=== PATIENT | male | born 1990 | race Caucasian/White ===

== ENCOUNTER 2016-06-05 16:02 | Emergency (ER) | payer OTHER ==
[2016-06-05 16:11] VITALS: RESP 18
[2016-06-05] MEDS ORDERED: SODIUM CHLORIDE 0.9% 1,000 ML IV STA (16:18)
[2016-06-05] MEDS ORDERED: KETOROLAC 30 MG/ML 1 ML VIAL IVP STA (16:18)
[2016-06-05 16:44] LABS: Basophils % (A) 0 %; CH 31.2; Eosinophils # (A) 0.1 k/uL (0-0.7); Eosinophils % (A) 1 %; HCT 45.1 % (39.0-53.0); HDW 2.72; HGB 15.6 gm/dL (13.0-17.5); Luc # (Auto) 0.14; Luc % (Auto) 2; Lymphocytes # (A) 1.2 k/uL (1.0-4.8); Lymphocytes % (A) 14 %; MCHC 34.6 g/dL (31.0-37.0); MCV 89.5 fL (80.0-100.0); Mean Platelet Volume 7.1; Monocytes # (A) 0.3 k/uL (0-1.0); Monocytes % (A) 4 %; Neutrophils # (A) 6.9 k/uL (1.3-7.7); Neutrophils % (A) 80 %; RBC 5.05 m/uL (4.30-5.90); RDW 12.8 % (11.5-15.5); WBC 8.7 k/uL (3.8-10.6); WBC (Perox) 8.74
[2016-06-05 16:51] LABS: ALT 53 U/L (21-72); AST 46 U/L (17-59); Alkaline Phosphatase 85 U/L (38-126); Amylase 61 U/L (30-110); Anion Gap 13 mmol/L; Blood Urea Nitrogen 7 mg/dL (9-20); Calcium 9.8 mg/dL (8.4-10.2); Carbon Dioxide 24 mmol/L (22-30); Chloride 104 mmol/L (98-107); Glucose 104 mg/dL (74-99); Non-African American GFR(MDRD) >60 (>60 ml/min/1.73 sqM); Potassium 3.7 mmol/L (3.5-5.1); Sodium 141 mmol/L (137-145); Total Bilirubin 0.8 mg/dL (0.2-1.3)
--- NOTE | 2016-06-05 16:54 | XR ---
EXAMINATION TYPE: XR KUB DATE OF EXAM: 06/05/2016 4:40 PM CLINICAL HISTORY: Left-sided abdominal pain with vomiting. History of right-sided kidney stones. TECHNIQUE: 2 upright KUB images of the abdomen are obtained. COMPARISON: CT abdomen pelvis September 18, 2014. Acute abdominal series July 13, 2015. FINDINGS: Scattered gas is seen in non-distended stomach and small bowel loops. Gas and fecal mater ial is seen in non-distended colon. Spleen size is stable and upper limits of normal. Tiny renal calc keron seen on CT are too small to visualize on plain films. Lung bases are clear. Heart size is upper l imits of normal. Visualized osseous structures are intact. No pneumoperitoneum is noted. IMPRESSION: Overall nonobstructive bowel gas pattern.
[2016-06-05 17:10] LABS: Appearance,Urine Clear (Clear); Bilirubin,Urine Negative (Negative); Glucose,Urine (UA) Negative (Negative); Ketones,Urine Negative (Negative); Leukocyte Esterase,Urine Negative (Negative); Mucus,Urine Occasional /hpf; Nitrite,Urine Negative (Negative); PH, Urine 5.5 (5.0-8.0); Particle Count 1491; Protein,Urine Trace (Negative); RBC,Urine 9 /hpf (0-5); Specific Gravity,Urine 1.012 (1.001-1.035); UA Billing (MACRO vs. MICRO) MICRO; Urobilinogen,Urine <2.0 mg/dL (<2.0); WBC,Urine 2 /hpf (0-5)
--- NOTE | 2016-06-05 17:32 | ED ---
Abdominal Pain HPI - General Chief Complaint: Abdominal Pain Stated Complaint: Side Pain Time Seen by Provider: 06/05/16 16:12 Source: patient, RN notes reviewed Mode of arrival: ambulatory Limitations: no limitations - History of Present Illness Initial Comments: 25-year-old male presents emergency Department with chief complaint of left flank pain. Patient states this started earlier this morning dissipated and return. Patient has a history kidney stones. Patient had some nausea that has dissipated. Denies any vomiting, diarrhea constipation. He states he has had some urinary changes. Patient offers no other complaints. - Related Data Home Medications Medication Instructions Recorded Confirmed Ibuprofen [Motrin] 600 mg PO TID PRN 06/05/16 06/05/16 Multivitamin [Multivitamins Adult 1 tab PO DAILY 06/05/16 06/05/16 Gummies] Ranitidine HCl [Zantac] 300 mg PO DAILY PRN 06/05/16 06/05/16 busPIRone HCL 10 mg PO TID PRN 06/05/16 06/05/16 Previous Rx's Medication Instructions Recorded Hydrocodone/Acetaminophen [[place] 1 tab PO Q6HR PRN #15 tab 06/05/16 5-325] Ketorolac [Toradol] 10 mg PO Q8HR #15 tab 06/05/16 Ondansetron Odt [Zofran Odt] 4 mg PO Q8HR PRN #10 tab 06/05/16 Allergies Allergy/AdvReac Type Severity Reaction Status Date / Time quetiapine fumarate Allergy Swelling Verified 06/05/16 16:35 [From Seroquel] sertraline HCl [From Zoloft] Allergy Swelling Verified 06/05/16 16:35 Review of Systems ROS Statement: Those systems with pertinent positive or pertinent negative responses have been documented in the HPI. ROS Other: All systems not noted in ROS Statement are negative. Past Medical History Additional Past Medical History / Comment(s): back pain, migraines History of Any Multi-Drug Resistant Organisms: None Reported Past Surgical History: Adenoidectomy, Hernia Repair Additional Past Surgical History / Comment(s): kidney stone retrieval Past Psychological History: Anxiety, Depression Smoking Status: Never smoker Past Alcohol Use History: Rare Past Drug Use History: Marijuana General Exam Limitations: no limitations General appearance: alert, in no apparent distress Head exam: Present: atraumatic, normocephalic, normal inspection Respiratory exam: Present: normal lung sounds bilaterally. Absent: respiratory distress, wheezes, rales, rhonchi, stridor Cardiovascular Exam: Present: regular rate, normal rhythm, normal heart sounds. Absent: systolic murmur, diastolic murmur, rubs, gallop, clicks GI/Abdominal exam: Present: soft, normal bowel sounds. Absent: distended, tenderness, guarding, rebound, rigid Back exam: Present: CVA tenderness (L). Absent: CVA tenderness (R) Neurological exam: Present: alert, oriented X3, CN II-XII intact Skin exam: Present: warm, dry, intact, normal color. Absent: rash Course Vital Signs 06/05/16 16:08 Temperature 98.4 F Pulse Rate 86 Respiratory 18 Rate Blood Pressure 128/76 O2 Sat by Pulse 97 Oximetry Medical Decision Making - Medical Decision Making 25-year-old male presented for left flank pain. Patient does have hematuria consistent with his kidney stones in the past. Patient will be discharged with pain medication. Patient's pain is improved at this time. Return parameters were discussed. - Lab Data Result diagrams: 06/05/16 16:25 06/05/16 16:25 Lab Results 06/05/16 06/05/16 06/05/16 Range/Units 16:25 16:25 16:54 WBC 8.7 (3.8-10.6) k/uL RBC 5.05 (4.30-5.90) m/uL Hgb 15.6 (13.0-17.5) gm/dL Hct 45.1 (39.0-53.0) % MCV 89.5 (80.0-100.0) fL MCH 31.0 (25.0-35.0) pg MCHC 34.6 (31.0-37.0) g/dL RDW 12.8 (11.5-15.5) % Plt Count 182 (150-450) k/uL Neutrophils % 80 % Lymphocytes % 14 % Monocytes % 4 % Eosinophils % 1 % Basophils % 0 % Neutrophils # 6.9 (1.3-7.7) k/uL Lymphocytes # 1.2 (1.0-4.8) k/uL Monocytes # 0.3 (0-1.0) k/uL Eosinophils # 0.1 (0-0.7) k/uL Basophils # 0.0 (0-0.2) k/uL Sodium 141 (137-145) mmol/L Potassium 3.7 (3.5-5.1) mmol/L Chloride 104 (98-107) mmol/L Carbon Dioxide 24 (22-30) mmol/L Anion Gap 13 mmol/L BUN 7 L (9-20) mg/dL Creatinine 0.69 (0.66-1.25) mg/dL Est GFR (MDRD) Af Amer >60 (>60 ml/min/1.73 sqM) Est GFR (MDRD) Non-Af >60 (>60 ml/min/1.73 sqM) Glucose 104 H (74-99) mg/dL Calcium 9.8 (8.4-10.2) mg/dL Total Bilirubin 0.8 (0.2-1.3) mg/dL AST 46 (17-59) U/L ALT 53 (21-72) U/L Alkaline Phosphatase 85 (38-126) U/L Total Protein 9.0 H (6.3-8.2) g/dL Albumin 5.1 H (3.5-5.0) g/dL Amylase 61 (30-110) U/L Lipase 67 (23-300) U/L Urine Color Yellow Urine Appearance Clear (Clear) Urine pH 5.5 (5.0-8.0) Ur Specific [place] 1.012 (1.001-1.035) Urine Protein Trace H (Negative) Urine Glucose (UA) Negative (Negative) Urine Ketones Negative (Negative) Urine Blood Small H (Negative) Urine Nitrite Negative (Negative) Urine Bilirubin Negative (Negative) Urine Urobilinogen <2.0 (<2.0) mg/dL Ur Leukocyte Esterase Negative (Negative) Urine RBC 9 H (0-5) /hpf Urine WBC 2 (0-5) /hpf Urine Mucus Occasional H (None) /hpf Disposition Clinical Impression: Kidney stone on left side Disposition: HOME SELF-CARE Condition: Stable Instructions: Kidney Stones (ED) Additional Instructions: Please return to the Emergency Department if symptoms worsen or any other concerns. Prescriptions: Hydrocodone/Acetaminophen [[place] 5-325] 1 tab PO Q6HR PRN #15 tab PRN Reason: Pain Ketorolac [Toradol] 10 mg PO Q8HR #15 tab Ondansetron Odt [Zofran Odt] 4 mg PO Q8HR PRN #10 tab PRN Reason: Nausea Time of Disposition: 17:31
[2016-06-05 17:42] VITALS: BP 127/71; PULSE 66; TEMP 98.7
== END 2016-06-05 17:42 | disposition home or self-care (01) ==
LOC: EC 16:02
DX: N20.0 Calculus of kidney (principal); Z79.899 Other long term (current) drug therapy; Z88.8 Allergy status to other drugs, medicaments and biological substances
CPT/HCPCS: 99284; 96374; 96361; 36415; 80053; 82150; 83690; 85025; 81001; 74000; J1885

== ENCOUNTER → 2016-10-24 | Outpatient (CLI) | payer OTHER ==
--- NOTE | 2016-10-24 14:27 | XR ---
EXAMINATION TYPE: XR spine complete AP and Lat DATE OF EXAM: 10/24/2016 COMPARISON: NONE HISTORY: 26-year-old male with back pain and pain between the shoulders TECHNIQUE: 9 views FINDINGS: Cervical spine: No predental space widening or prevertebral soft tissue swelling. There is normal ali gnment of the cervical spine. No significant degenerative change is seen. Thoracic spine: 12 rib-bearing thoracic vertebral bodies. All pedicles are visualized. There is accen tuated mid thoracic kyphosis and mild endplate spondylosis. Vertebral body heights are preserved and alignment is maintained. Lumbar spine: 5 lumbar type vertebral bodies. Mild facet arthropathy lower lumbar spine and suggestio n of very minimal disc space narrowing in the lumbar spine. Vertebral body heights are preserved and alignment is maintained. IMPRESSION: 1. Cervical spine: No prevertebral soft tissue swelling or malalignment. No significant degenerative change seen. 2. Thoracic spine: Accentuated midthoracic kyphosis with mild endplate spondylosis. No vertebral comp ression collapse or malalignment. 3. Lumbar spine: Minimal degenerative changes may be present. No vertebral compression collapse or ma lalignment.
== END | disposition home or self-care (01) ==
LOC: RADXRMAIN 12:01
PROVIDERS: ATTEND Internal Medicine
DX: M47.814 Spondylosis without myelopathy or radiculopathy, thoracic region (principal); M40.294 Other kyphosis, thoracic region
CPT/HCPCS: 72082

== ENCOUNTER 2016-11-09 21:40 | Emergency (ER) | payer OTHER ==
[2016-11-09 21:50] VITALS: RESP 18
--- NOTE | 2016-11-09 22:12 | ED ---
Male Urogenital HPI - General Chief complaint: Urogenital Stated complaint: hematuria Time Seen by Provider: 11/09/16 21:50 Source: patient Mode of arrival: ambulatory Limitations: no limitations - History of Present Illness Initial comments: Patient is a 26-year-old male who presents with a chief complaint of hematuria. The patient states that he was at home, and had one episode. He states that at the beginning of his stream he felt as if there was pressure on the shaft of his penis. After history and started he felt a little better however at the end of his stream he noticed a little bit of blood. Patient states that this is not happened to him before however he is concerned that he may be passing another kidney stone as he has a history of previous stones. Patient describes mild right flank pain however he states this is not nearly as intense as the last time he had a kidney stone. Patient states that he is sexually active with one partner. Patient states that he is unsure whether or not he has been exposed to socially transmitted infections. Patient admits to mild burning the last time he urinated. Patient denies any history of trauma to the groin or back. He cannot identify a possible inciting incidents. There are no aggravating or alleviating factors. MD Complaint: dysuria Location: penis, right flank Radiation: none Quality: burning Consistency: intermittent Improves with: none Worsens with: urination new sexual partner (Patient has been with his current partner for 3 months) Reports: blood in urine - Related Data Home Medications Medication Instructions Recorded Confirmed ARIPiprazole [Abilify] 5 mg PO DAILY 11/09/16 11/09/16 Baclofen (Unknown Dose) 1 tab PO DIRECTED 11/09/16 11/09/16 Melatonin 3 mg PO HS 11/09/16 11/09/16 OXcarbazepine [Trileptal] 300 mg PO BID 11/09/16 11/09/16 PARoxetine [Paxil] 20 mg PO DAILY 11/09/16 11/09/16 Allergies Allergy/AdvReac Type Severity Reaction Status Date / Time quetiapine fumarate Allergy Swelling Verified 11/09/16 22:29 [From Seroquel] sertraline HCl [From Zoloft] Allergy Swelling Verified 11/09/16 22:29 Review of Systems ROS Statement: Those systems with pertinent positive or pertinent negative responses have been documented in the HPI. ROS Other: All systems not noted in ROS Statement are negative. Constitutional: Denies: fever, chills Eyes: Denies: vision change ENT: Denies: ear pain, throat pain Respiratory: Denies: dyspnea Cardiovascular: Denies: chest pain Endocrine: Denies: fatigue Gastrointestinal: Denies: abdominal pain, nausea, vomiting Genitourinary: Reports: dysuria, hematuria. Denies: discharge, testicular pain , testicular mass Musculoskeletal: Denies: back pain Skin: Denies: rash, lesions Neurological: Denies: headache, weakness Psychiatric: Reports: as per HPI Past Medical History Past Medical History: No Reported History Additional Past Medical History / Comment(s): back pain, migraines, kidney stones History of Any Multi-Drug Resistant Organisms: None Reported Past Surgical History: Adenoidectomy, Hernia Repair Additional Past Surgical History / Comment(s): kidney stone retrieval Past Psychological History: Anxiety, Depression Smoking Status: Never smoker Past Alcohol Use History: Occasional Past Drug Use History: Marijuana General Exam Limitations: no limitations General appearance: alert, appears intoxicated Head exam: Present: atraumatic, normocephalic Eye exam: Present: normal appearance ENT exam: Present: normal exam, mucous membranes moist Respiratory exam: Present: normal lung sounds bilaterally. Absent: respiratory distress Cardiovascular Exam: Present: regular rate, normal rhythm, normal heart sounds GI/Abdominal exam: Present: soft. Absent: distended, tenderness, guarding Rectal exam: Present: deferred exam: Present: normal inspection, circumcision. Absent: testicular tenderness, urethral discharge, scrotal swelling Extremities exam: Present: normal inspection Back exam: Present: normal inspection, CVA tenderness (R) (Mild) Neurological exam: Present: alert, oriented X3 Psychiatric exam: Present: normal affect, normal mood Skin exam: Present: warm, dry, intact Course Vital Signs 11/09/16 21:47 Temperature 97.7 F Pulse Rate 88 Respiratory 18 Rate Blood Pressure 134/83 O2 Sat by Pulse 97 Oximetry Medical Decision Making - Medical Decision Making Patient presents with a chief complaint of hematuria and very mild, vague right flank pain. Discussed with the patient reveals that he is mildly concerned for sexually transmitted infections, or kidney stones. At this time, patient's history is not very consistent with nephrolithiasis. We'll send for basic labs to check for signs of infection, and renal function. We'll obtain a urinalysis to investigate for blood, infection. We'll send for GC and Chlamydia cultures from the urine. Patient is agreeable to empiric treatment in the emergency department. 11:30 PM Lab evaluation of this patient is unremarkable. Urinalysis is concerning because there are 166 red blood cells, and 14 white blood cells. Patient will be empirically treated for STI, at this point I will send the patient for ultrasound of his kidneys and bladder. On reexamination, patient states that he is still having mild pain in the right flank. 12:17 AM Ultrasound of the kidneys and bladder show no hydronephrosis or identifiable stone. Ultrasound imaging of the bladder appears normal. At this time, patient has been empirically treated for STI, I will prescribe him an antibiotic to cover any infectious etiology of hematuria and dysuria. At this time, all questions are answered to the best of my ability. Patient is stable for discharge. I instructed him to follow up with his primary care doctor for possible referral to urology if needed. He is further instructed to return to the emergency department if his symptoms worsen or change in any way. - Lab Data Result diagrams: 11/09/16 22:18 11/09/16 22:18 Lab Results 11/09/16 11/09/16 11/09/16 Range/Units 22:18 22:18 22:49 WBC 6.8 (3.8-10.6) k/uL RBC 5.16 (4.30-5.90) m/uL Hgb 16.2 (13.0-17.5) gm/dL Hct 46.6 (39.0-53.0) % MCV 90.5 (80.0-100.0) fL MCH 31.5 (25.0-35.0) pg MCHC 34.8 (31.0-37.0) g/dL RDW 13.5 (11.5-15.5) % Plt Count 179 (150-450) k/uL Neutrophils % 68 % Lymphocytes % 23 % Monocytes % 5 % Eosinophils % 2 % Basophils % 1 % Neutrophils # 4.6 (1.3-7.7) k/uL Lymphocytes # 1.6 (1.0-4.8) k/uL Monocytes # 0.3 (0-1.0) k/uL Eosinophils # 0.2 (0-0.7) k/uL Basophils # 0.0 (0-0.2) k/uL Sodium 143 (137-145) mmol/L Potassium 4.2 (3.5-5.1) mmol/L Chloride 105 (98-107) mmol/L Carbon Dioxide 24 (22-30) mmol/L Anion Gap 14 mmol/L BUN 12 (9-20) mg/dL Creatinine 0.74 (0.66-1.25) mg/dL Est GFR (MDRD) Af Amer >60 (>60 ml/min/1.73 sqM) Est GFR (MDRD) Non-Af >60 (>60 ml/min/1.73 sqM) Glucose 94 (74-99) mg/dL Calcium 9.4 (8.4-10.2) mg/dL Urine Color Yellow Urine Appearance Cloudy (Clear) Urine pH 6.5 (5.0-8.0) Ur Specific [place] 1.020 (1.001-1.035) Urine Protein Trace H (Negative) Urine Glucose (UA) Negative (Negative) Urine Ketones Negative (Negative) Urine Blood Moderate H (Negative) Urine Nitrite Negative (Negative) Urine Bilirubin Negative (Negative) Urine Urobilinogen <2.0 (<2.0) mg/dL Ur Leukocyte Esterase Small H (Negative) Urine RBC 166 H (0-5) /hpf Urine WBC 14 H (0-5) /hpf Amorphous Sediment Rare H (None) /hpf Urine Mucus Rare H (None) /hpf Disposition Clinical Impression: Hematuria, UTI (urinary tract infection) Disposition: HOME SELF-CARE Condition: Good Instructions: Urinary Tract Infection in Men (ED) Referrals: Emma Rosario MD [Primary Care Provider] - 1-2 days
[2016-11-09 22:25] LABS: Basophils % (A) 1 %; CH 31.9; CHCM 35.4; Eosinophils # (A) 0.2 k/uL (0-0.7); Eosinophils % (A) 2 %; HCT 46.6 % (39.0-53.0); HDW 2.65; HGB 16.2 gm/dL (13.0-17.5); Luc # (Auto) 0.13; Luc % (Auto) 2; Lymphocytes # (A) 1.6 k/uL (1.0-4.8); Lymphocytes % (A) 23 %; MCH 31.5 pg (25.0-35.0); MCHC 34.8 g/dL (31.0-37.0); MCV 90.5 fL (80.0-100.0); Mean Platelet Volume 7.4; Monocytes # (A) 0.3 k/uL (0-1.0); Monocytes % (A) 5 %; Neutrophils # (A) 4.6 k/uL (1.3-7.7); Neutrophils % (A) 68 %; RBC 5.16 m/uL (4.30-5.90); RDW 13.5 % (11.5-15.5); WBC 6.8 k/uL (3.8-10.6)
[2016-11-09 22:34] LABS: Anion Gap 14 mmol/L; Blood Urea Nitrogen 12 mg/dL (9-20); Calcium 9.4 mg/dL (8.4-10.2); Carbon Dioxide 24 mmol/L (22-30); Chloride 105 mmol/L (98-107); Glucose 94 mg/dL (74-99); Non-African American GFR(MDRD) >60 (>60 ml/min/1.73 sqM); Potassium 4.2 mmol/L (3.5-5.1); Sodium 143 mmol/L (137-145)
[2016-11-09 23:05] LABS: Amorphous Sediment,Urine Rare /hpf; Appearance,Urine Cloudy (Clear); Bilirubin,Urine Negative (Negative); Glucose,Urine (UA) Negative (Negative); Ketones,Urine Negative (Negative); Leukocyte Esterase,Urine Small (Negative); Mucus,Urine Rare /hpf; Nitrite,Urine Negative (Negative); PH, Urine 6.5 (5.0-8.0); Particle Count 10619; Protein,Urine Trace (Negative); RBC,Urine 166 /hpf (0-5); UA Billing (MACRO vs. MICRO) MICRO; Urobilinogen,Urine <2.0 mg/dL (<2.0); WBC,Urine 14 /hpf (0-5)
[2016-11-09] MEDS ORDERED: cefTRIAXone 250 MG VIAL IM STA (23:29)
[2016-11-09] MEDS ORDERED: AZITHROMYCIN 500 MG TAB PO STA (23:29)
--- NOTE | 2016-11-10 00:03 | US ---
EXAMINATION TYPE: US renals and bladder DATE OF EXAM: 11/09/2016 COMPARISON: US and CT Abdomen 2014 CLINICAL HISTORY: Pain. EC patient with hematuria; prior renal stones per patient EXAM MEASUREMENTS: Right Kidney: 11.2 x 5.3 x 4.4 cm Left Kidney: 12.1 x 4.7 x 4.5 cm Post Void Residual Volume: NA as patient voided earlier for UA Right Kidney: No hydronephrosis or masses seen Left Kidney: No hydronephrosis or masses seen Bladder: partially distended Bilateral Jets seen: Yes There is no evidence for hydronephrosis at this point in time. No nephrolithiasis is seen. No eric s are identified. The urinary bladder is anechoic. Bilateral ureteral jets are seen. IMPRESSION: No evidence of renal mass or obstruction. Urinary bladder appears normal.
[2016-11-10 00:30] VITALS: BP 127/63; PULSE 85; TEMP 98.7
== END 2016-11-10 00:28 | disposition home or self-care (01) ==
LOC: EC 21:40
DX: N39.0 Urinary tract infection, site not specified (principal); F41.9 Anxiety disorder, unspecified; F32.9 Major depressive disorder, single episode, unspecified; Z79.899 Other long term (current) drug therapy; Z88.8 Allergy status to other drugs, medicaments and biological substances
CPT/HCPCS: 99284; 96372; 36415; 80048; 85025; 81001; 87491; 87591; 76770; J0696

== ENCOUNTER → 2016-12-25 | Outpatient (CLI) | payer OTHER ==
--- NOTE | 2016-12-25 07:35 | MR ---
EXAMINATION TYPE: MR lumbar spine wo con DATE OF EXAM: 12/25/2016 COMPARISON: NONE HISTORY: Low back pain CONTRAST: 0 mL intravenous Gadavist. TECHNIQUE: Multiplanar, multisequence images of the lumbar spine were acquired. FINDINGS: L5-S1: Mild central focal bulge is present with mild anterior thecal sac compression. No stenosis is present. Mild disc desiccation is present. No loss of disc height is evident. No foraminal stenosis . Facets are unremarkable.. L4-L5: Broad-based disc bulge has mild anterior thecal sac flattening. There is increased signal on T 2-weighted sequences within the disc space compatible with an annular tear. No AP spinal canal stenos is present. Disc desiccation is present. Disc height is preserved. Subligamentous disc extension may be present on the sagittal plane images best visualized with T1 sagittal views. No foraminal stenosi s. Facets are unremarkable.. L3-L4: No significant disc bulge or disc herniation. No spinal canal stenosis. No foraminal stenosi s. L2-L3: No significant disc bulge or disc herniation. No spinal canal stenosis. No foraminal stenosi s. L1-L2: No significant disc bulge or disc herniation. No spinal canal stenosis. No foraminal stenosi s. T12-L1: No significant disc bulge or disc herniation. No spinal canal stenosis. No foraminal stenos is. Cord terminates at the L2 level IMPRESSION: 1. Annular tear L5-S1. Minimal subligamentous disc herniation is not excluded. 2. Disc desiccation L4-5 L5-S1 with preservation of the disc heights.
== END | disposition home or self-care (01) ==
LOC: RADMRIMAIN 06:10
PROVIDERS: ATTEND Psychiatry & Neurology Pain Medicine
DX: M51.37 Other intervertebral disc degeneration, lumbosacral region (principal)
CPT/HCPCS: 72148

== ENCOUNTER → 2017-11-08 | Outpatient (CLI) | payer OTHER | END | disposition home or self-care (01) | LOC: LABWHC1 15:54 | PROVIDERS: ATTEND Nurse Practitioner | DX: F31.5 Bipolar disorder, current episode depressed, severe, with psychotic features (principal) | CPT/HCPCS: 36415; 80183 ==

== ENCOUNTER 2018-04-13 18:44 | Emergency (ER) | payer OTHER ==
--- NOTE | 2018-04-13 19:41 | ED ---
General Adult HPI - General Chief complaint: Urogenital Stated complaint: HEMATURIA, UNABLE TO HOLD URINE Time Seen by Provider: 04/13/18 19:13 Source: patient, RN notes reviewed Mode of arrival: ambulatory Limitations: no limitations - History of Present Illness Initial comments: 27-year-old male presents to the emergency department for a chief complaint of hematuria x 1 day. Patient states that earlier today he had 2 episodes of incontinence. Patient states he was at work and he urinated on himself. He states he did not have the urge to urinate at that time. Patient states he then noticed blood in his urine afterwards. He denies any upper or lower back pain. He doesn't he had some twinges of right testicular pain but denies any pain at this time. He admits to burning when urinating. Patient states he is now able to control his urine flow. He denies any abdominal pain. Patient states he is sexually active. Patient has no other complaints at this time including shortness of breath, chest pain, abdominal pain, nausea or vomiting, headache, or visual changes. - Related Data Home Medications Medication Instructions Recorded Confirmed ARIPiprazole [Abilify] 5 mg PO DAILY 11/09/16 11/09/16 Baclofen (Unknown Dose) 1 tab PO DIRECTED 11/09/16 11/09/16 Melatonin 3 mg PO HS 11/09/16 11/09/16 OXcarbazepine [Trileptal] 300 mg PO BID 11/09/16 11/09/16 PARoxetine [Paxil] 20 mg PO DAILY 11/09/16 11/09/16 Previous Rx's Medication Instructions Recorded Ciprofloxacin HCl [Cipro] 500 mg PO Q12HR #14 tablet 11/10/16 Allergies Allergy/AdvReac Type Severity Reaction Status Date / Time quetiapine fumarate Allergy Swelling Verified 04/13/18 19:02 [From Seroquel] sertraline HCl [From Zoloft] Allergy Swelling Verified 04/13/18 19:02 Review of Systems ROS Statement: Those systems with pertinent positive or pertinent negative responses have been documented in the HPI. ROS Other: All systems not noted in ROS Statement are negative. Past Medical History Past Medical History: No Reported History Additional Past Medical History / Comment(s): back pain, migraines, kidney stones History of Any Multi-Drug Resistant Organisms: None Reported Past Surgical History: Adenoidectomy, Hernia Repair Additional Past Surgical History / Comment(s): kidney stone retrieval Past Psychological History: Anxiety, Depression Smoking Status: Never smoker Past Alcohol Use History: Occasional Past Drug Use History: None Reported General Exam Limitations: no limitations General appearance: alert, in no apparent distress Head exam: Present: atraumatic, normocephalic, normal inspection Eye exam: Present: normal appearance, PERRL, EOMI. Absent: scleral icterus, conjunctival injection, periorbital swelling ENT exam: Present: normal exam Neck exam: Present: normal inspection, full ROM. Absent: tenderness, meningismus, lymphadenopathy Respiratory exam: Present: normal lung sounds bilaterally. Absent: respiratory distress, wheezes, rales, rhonchi, stridor Cardiovascular Exam: Present: regular rate, normal rhythm, normal heart sounds. Absent: systolic murmur, diastolic murmur, rubs, gallop, clicks GI/Abdominal exam: Present: soft, normal bowel sounds. Absent: distended, tenderness, guarding, rebound, rigid exam: Present: normal inspection, other (Tita BAXTER present for exam). Absent : testicular tenderness (no testicular or epididymal tenderness bilat), urethral discharge, scrotal swelling (no edema or erythema noted over testicles) , vertical testicular lie, circumcision Back exam: Absent: CVA tenderness (R), CVA tenderness (L), vertebral tenderness (no lumbar spine tenderness, patient denies back pain) Neurological exam: Present: alert, oriented X3, CN II-XII intact Psychiatric exam: Present: normal affect, normal mood Course Vital Signs 04/13/18 04/13/18 19:02 21:19 Temperature 98.3 F 98.3 F Pulse Rate 78 77 Respiratory 18 16 Rate Blood Pressure 125/77 130/65 O2 Sat by Pulse 98 98 Oximetry Medical Decision Making - Medical Decision Making 27-year-old male presents to the emergency department for a chief complaint of hematuria and incontinence and dysuria times one day. Patient had 2 episodes of incontinence with hematuria noted. The patient now controlling urine without difficulty. CBC CMP unremarkable. Urinalysis does show 55 red blood cells with 15 white blood cells. It is likely that white blood cells are evident due to the red blood cells however urine will be cultured. Patient does have a history of renal stone however ultrasound of the kidney ureters and bladder show no evidence of renal mass or obstruction. No hydronephrosis or nephrolithiasis. Upon reevaluation patient does admit that his girlfriend had an unknown STD that was treated within the past month. Patient was never tested or treated. Because this patient will be treated here today with Rocephin, azithromycin, and Flagyl. He will follow up with primary care. Educated not to engage in intercourse until results are back. Educated that patient's girlfriend probably needs to be tested again too if results are positive - Lab Data Result diagrams: 04/13/18 20:32 04/13/18 20:32 Lab Results 04/13/18 04/13/18 04/13/18 Range/Units 19:38 20:32 20:32 WBC 7.9 (3.8-10.6) k/uL RBC 5.03 (4.30-5.90) m/uL Hgb 14.8 (13.0-17.5) gm/dL Hct 43.0 (39.0-53.0) % MCV 85.5 (80.0-100.0) fL MCH 29.5 (25.0-35.0) pg MCHC 34.5 (31.0-37.0) g/dL RDW 12.9 (11.5-15.5) % Plt Count 190 (150-450) k/uL Neutrophils % 69 % Lymphocytes % 22 % Monocytes % 4 % Eosinophils % 3 % Basophils % 0 % Neutrophils # 5.5 (1.3-7.7) k/uL Lymphocytes # 1.7 (1.0-4.8) k/uL Monocytes # 0.3 (0-1.0) k/uL Eosinophils # 0.2 (0-0.7) k/uL Basophils # 0.0 (0-0.2) k/uL Sodium 140 (137-145) mmol/L Potassium 3.8 (3.5-5.1) mmol/L Chloride 107 (98-107) mmol/L Carbon Dioxide 24 (22-30) mmol/L Anion Gap 9 mmol/L BUN 11 (9-20) mg/dL Creatinine 0.69 (0.66-1.25) mg/dL Est GFR (CKD-EPI)AfAm >90 (>60 ml/min/1.73 sqM) Est GFR (CKD-EPI)NonAf >90 (>60 ml/min/1.73 sqM) Glucose 114 H (74-99) mg/dL Calcium 9.1 (8.4-10.2) mg/dL Total Bilirubin 0.6 (0.2-1.3) mg/dL AST 51 (17-59) U/L ALT 54 (21-72) U/L Alkaline Phosphatase 72 (38-126) U/L Total Protein 8.1 (6.3-8.2) g/dL Albumin 4.7 (3.5-5.0) g/dL Urine Color Yellow Urine Appearance Clear (Clear) Urine pH 6.0 (5.0-8.0) Ur Specific [place] 1.020 (1.001-1.035) Urine Protein Trace H (Negative) Urine Glucose (UA) Negative (Negative) Urine Ketones Negative (Negative) Urine Blood Moderate H (Negative) Urine Nitrite Negative (Negative) Urine Bilirubin Negative (Negative) Urine Urobilinogen <2.0 (<2.0) mg/dL Ur Leukocyte Esterase Negative (Negative) Urine RBC 55 H (0-5) /hpf Urine WBC 15 H (0-5) /hpf Urine Mucus Few H (None) /hpf Disposition Clinical Impression: Hematuria Disposition: HOME SELF-CARE Condition: Good Instructions (If sedation given, give patient instructions): Hematuria (ED), Sexually Transmitted Diseases (ED) Additional Instructions: Please follow up on culture results in the next 2 days. You will receive a call with an antibiotic if needed. Please return if you have any other worsening symptoms. Otherwise follow-up with primary care for blood in urine. Is patient prescribed a controlled substance at d/c from ED?: No Referrals: Emma Rosario MD [Primary Care Provider] - 1-2 days Time of Disposition: 21:59
[2018-04-13 20:10] LABS: Appearance,Urine Clear (Clear); Bilirubin,Urine Negative (Negative); Blood,Urine Moderate (Negative); Color,Urine Yellow; Glucose,Urine (UA) Negative (Negative); Ketones,Urine Negative (Negative); Leukocyte Esterase,Urine Negative (Negative); Mucus,Urine Few /hpf; Nitrite,Urine Negative (Negative); Protein,Urine Trace (Negative); RBC,Urine 55 /hpf (0-5); Urobilinogen,Urine <2.0 mg/dL (<2.0); WBC,Urine 15 /hpf (0-5)
[2018-04-13 20:41] LABS: Basophils % (A) 0 %; Eosinophils # (A) 0.2 k/uL (0-0.7); Eosinophils % (A) 3 %; HGB 14.8 gm/dL (13.0-17.5); Lymphocytes # (A) 1.7 k/uL (1.0-4.8); Lymphocytes % (A) 22 %; MCH 29.5 pg (25.0-35.0); MCHC 34.5 g/dL (31.0-37.0); MCV 85.5 fL (80.0-100.0); Mean Platelet Volume 6.9; Monocytes # (A) 0.3 k/uL (0-1.0); Monocytes % (A) 4 %; Neutrophils # (A) 5.5 k/uL (1.3-7.7); Neutrophils % (A) 69 %; Platelet Count 190 k/uL (150-450); RBC 5.03 m/uL (4.30-5.90); RDW 12.9 % (11.5-15.5); WBC 7.9 k/uL (3.8-10.6)
[2018-04-13 20:52] LABS: Potassium 3.8 mmol/L (3.5-5.1)
[2018-04-13 20:53] LABS: ALT 54 U/L (21-72); AST 51 U/L (17-59); Albumin 4.7 g/dL (3.5-5.0); Alkaline Phosphatase 72 U/L (38-126); Anion Gap 9 mmol/L; Blood Urea Nitrogen 11 mg/dL (9-20); Calcium 9.1 mg/dL (8.4-10.2); Carbon Dioxide 24 mmol/L (22-30); Chloride 107 mmol/L (98-107); Glucose 114 mg/dL (74-99); Sodium 140 mmol/L (137-145); Total Bilirubin 0.6 mg/dL (0.2-1.3); Total Protein 8.1 g/dL (6.3-8.2)
[2018-04-13 21:20] VITALS: RESP 16
--- NOTE | 2018-04-13 21:25 | US ---
EXAMINATION TYPE: US kidneys/renal and bladder DATE OF EXAM: 04/13/2018 COMPARISON: US CLINICAL HISTORY: Pain. Hematuria and urinary urgency today; prior right renal stone EXAM MEASUREMENTS: Right Kidney: 11.1 x 5.0 x 4.0 cm Left Kidney: 11.0 x 3.8 x 4.3 cm Post Void Residual Volume: not assessed on EC patient Right Kidney: No hydronephrosis or masses seen Left Kidney: No hydronephrosis or masses seen Bladder: wnl, but not fully distended Bilateral Jets seen: not seen after 3 minute observation There is no evidence for hydronephrosis at this point in time. No nephrolithiasis is seen. No eric s are identified. The urinary bladder is anechoic. IMPRESSION: No evidence of renal mass or obstruction.
[2018-04-13] MEDS ORDERED: AZITHROMYCIN 500 MG TAB PO STA (21:49)
[2018-04-13] MEDS ORDERED: cefTRIAXone 250 MG VIAL IM STA (21:50)
[2018-04-13] MEDS ORDERED: metroNIDAZOLE 500 MG TAB PO STA (21:50)
[2018-04-13 22:16] VITALS: BP 132/79; PULSE 74; TEMP 98
[2018-04-15 13:20] LABS: C. trachomatis,PCR Negative (Neg,Equiv); Chlamydia trachomatis Source Urine; N. gonorrhoeae,PCR Negative (Neg,Equiv); Neisseria Source Urine
== END 2018-04-13 22:10 | disposition home or self-care (01) ==
LOC: EC 18:44
DX: R31.9 Hematuria, unspecified (principal); R32 Unspecified urinary incontinence; R30.0 Dysuria; F32.9 Major depressive disorder, single episode, unspecified; F41.9 Anxiety disorder, unspecified; Z79.899 Other long term (current) drug therapy; Z88.8 Allergy status to other drugs, medicaments and biological substances; Z87.442 Personal history of urinary calculi
CPT/HCPCS: 36415; 80053; 85025; 81001; 87491; 87591; 76770; 99284; 96372; J0696

== ENCOUNTER 2018-06-28 12:15 | Emergency (ER) | payer OTHER ==
--- NOTE | 2018-06-28 14:14 | XR ---
EXAMINATION TYPE: XR toes LT DATE OF EXAM: 06/28/2018 COMPARISON: NONE HISTORY: Left toe pain after dropping a palate today on the patient's first left great toe. TECHNIQUE: 3 views of the first left toe were obtained. FINDINGS: No evidence of acute fracture or dislocation is seen of the left first metatarsal, proximal phalanx, nor distal phalanx. No radiopaque foreign body is seen. No malalignment. Osseous mineraliza tion is within normal limits. Soft tissues are unremarkable. IMPRESSION: No acute fracture or dislocation of the left great toe.
--- NOTE | 2018-06-28 14:25 | ED ---
General Adult HPI - General Chief complaint: Extremity Injury, Lower Stated complaint: Toe injury Time Seen by Provider: 06/28/18 12:56 Source: patient, RN notes reviewed Mode of arrival: ambulatory Limitations: no limitations - History of Present Illness Initial comments: 27-year-old male presents to the emergency department for left great toe injury. Patient states he dropped a pallet on his foot a couple days left great toe a couple days ago. States that yesterday it started hurting and he thinks the nail is bruised. Denies any other injuries. States he is able to ambulate on his foot. Denies any actual foot pain states it is on the toe.Patient has no other complaints at this time including shortness of breath, chest pain, abdominal pain, nausea or vomiting, headache, or visual changes. - Related Data Home Medications Medication Instructions Recorded Confirmed ARIPiprazole [Abilify] 5 mg PO DAILY 11/09/16 11/09/16 Baclofen (Unknown Dose) 1 tab PO DIRECTED 11/09/16 11/09/16 Melatonin 3 mg PO HS 11/09/16 11/09/16 OXcarbazepine [Trileptal] 300 mg PO BID 11/09/16 11/09/16 PARoxetine [Paxil] 20 mg PO DAILY 11/09/16 11/09/16 Previous Rx's Medication Instructions Recorded Ciprofloxacin HCl [Cipro] 500 mg PO Q12HR #14 tablet 11/10/16 Allergies Allergy/AdvReac Type Severity Reaction Status Date / Time quetiapine fumarate Allergy Swelling Verified 06/28/18 12:47 [From Seroquel] sertraline HCl [From Zoloft] Allergy Swelling Verified 06/28/18 12:47 Review of Systems ROS Statement: Those systems with pertinent positive or pertinent negative responses have been documented in the HPI. ROS Other: All systems not noted in ROS Statement are negative. Past Medical History Past Medical History: No Reported History Additional Past Medical History / Comment(s): back pain, migraines, kidney stones History of Any Multi-Drug Resistant Organisms: None Reported Past Surgical History: Adenoidectomy, Hernia Repair Additional Past Surgical History / Comment(s): kidney stone retrieval Past Psychological History: Anxiety, Depression Smoking Status: Never smoker Past Alcohol Use History: Occasional Past Drug Use History: None Reported General Exam Limitations: no limitations General appearance: alert, in no apparent distress Head exam: Present: atraumatic, normocephalic, normal inspection Eye exam: Present: normal appearance, PERRL, EOMI. Absent: scleral icterus, conjunctival injection, periorbital swelling ENT exam: Present: normal exam, mucous membranes moist Neck exam: Present: normal inspection, full ROM. Absent: tenderness, m eningismus, lymphadenopathy Respiratory exam: Present: normal lung sounds bilaterally. Absent: respiratory distress, wheezes, rales, rhonchi, stridor Cardiovascular Exam: Present: regular rate, normal rhythm, normal heart sounds. Absent: systolic murmur, diastolic murmur, rubs, gallop, clicks Extremities exam: Present: full ROM (Full range of motion of the left great toe and all toes in the left foot), tenderness (tenderness noted over the left great toe nail), normal capillary refill (Refill less than 2 seconds in all digits of the left foot. DP pulse 2+.), other (90% subungual hematoma noted of the left great toe nail bed. No erythema suggestive of infection.) Course Vital Signs 06/28/18 12:45 Temperature 97.7 F Pulse Rate 70 Respiratory 16 Rate Blood Pressure 127/77 O2 Sat by Pulse 99 Oximetry Procedures - Procedures Initial comment: Trephination of the left great toenail: Nail bed was cleaned with povidone-iodine Cautery tool was used to trephinate the left great toenail. Blood expelled, no complications Medical Decision Making - Medical Decision Making 27-year-old male visits to the emergency department for left great toe pain after dropping a pallet on his foot a few days ago. States he has bruising under the nail. States he is able to ambulate on it. Denies any foot pain or ankle pain. Denies any other injuries. On exam patient does have subungual hematoma noted. No evidence of infection or cellulitic. Trephination was performed without compensation. X-ray shows no fracture. Patient will follow up with primary care in 1-2 days and return if he has any worsening symptoms. Disposition Clinical Impression: Subungual hematoma of great toe of left foot Disposition: HOME SELF-CARE Condition: Good Instructions (If sedation given, give patient instructions): Subungual Hematoma (ED) Additional Instructions: Please soak left foot in warm water 2-3 times a day for the next 7 days. Monitor for signs of infection such as spreading or streaking redness. Take Motrin or Tylenol for pain. Follow-up with primary care in 1-2 days. Return here if you have any worsening symptoms. Is patient prescribed a controlled substance at d/c from ED?: No Referrals: Emma Rosario MD [Primary Care Provider] - 1-2 days Time of Disposition: 14:24
[2018-06-28 14:51] VITALS: BP 126/78; PULSE 78; RESP 18; TEMP 98
== END 2018-06-28 14:49 | disposition home or self-care (01) ==
LOC: EC 12:15
DX: S90.212A Contusion of left great toe with damage to nail, initial encounter (principal); F32.9 Major depressive disorder, single episode, unspecified; F41.9 Anxiety disorder, unspecified; Z79.899 Other long term (current) drug therapy; Z88.8 Allergy status to other drugs, medicaments and biological substances; W20.8XXA Other cause of strike by thrown, projected or falling object, initial encounter; Y92.89 Other specified places as the place of occurrence of the external cause
CPT/HCPCS: 11740; 99283

== ENCOUNTER 2020-08-09 21:18 | Emergency (ER) | payer OTHER ==
[2020-08-09 21:21] VITALS: RESP 16; TEMP 97.5
[2020-08-09 21:31] LABS: Glucose,Whole Blood 71 mg/dL (75-99)
[2020-08-09] MEDS ORDERED: SODIUM CHLORIDE 0.9% 500 ML 500 ML IV STA (21:31)
[2020-08-09] MEDS ORDERED: DEXTROSE 50% SYRINGE 50 ML IVP STA (21:36)
[2020-08-09 21:58] LABS: Basophils # (A) 0.1 k/uL (0-0.2); Basophils % (A) 1 %; Eosinophils # (A) 0.2 k/uL (0-0.7); Eosinophils % (A) 2 %; HCT 43.6 % (39.0-53.0); HGB 15.3 gm/dL (13.0-17.5); Lymphocytes # (A) 1.9 k/uL (1.0-4.8); Lymphocytes % (A) 26 %; MCH 30.4 pg (25.0-35.0); MCHC 35.1 g/dL (31.0-37.0); MCV 86.5 fL (80.0-100.0); Mean Platelet Volume 7.6; Monocytes # (A) 0.4 k/uL (0-1.0); Monocytes % (A) 6 %; Neutrophils # (A) 4.6 k/uL (1.3-7.7); Neutrophils % (A) 62 %; Platelet Count 221 k/uL (150-450); RBC 5.04 m/uL (4.30-5.90); RDW 12.7 % (11.5-15.5); WBC 7.4 k/uL (3.8-10.6)
[2020-08-09 22:11] LABS: ALT 38 U/L (4-49); AST 58 U/L (17-59); African American GFR (CKD) >90 (>60 ml/min/1.73 sqM); Albumin 5.2 g/dL (3.5-5.0); Alcohol <10 mg/dL; Alkaline Phosphatase 77 U/L (38-126); Anion Gap 12 mmol/L; Blood Urea Nitrogen 7 mg/dL (9-20); Carbon Dioxide 25 mmol/L (22-30); Chloride 102 mmol/L (98-107); Creatine Kinase 228 U/L (55-170); Glucose 70 mg/dL (74-99); Non-African American GFR(CKD) >90 (>60 ml/min/1.73 sqM); Potassium 3.6 mmol/L (3.5-5.1); Sodium 139 mmol/L (137-145); Total Bilirubin 0.8 mg/dL (0.2-1.3); Total Protein 8.7 g/dL (6.3-8.2)
[2020-08-09 22:17] LABS: INR 0.9 (<1.2); Partial Thromboplastin Time 24.2 sec (22.0-30.0); Prothrombin Time 10.2 sec (9.0-12.0)
[2020-08-09] MEDS ORDERED: SODIUM CHLORIDE 0.9% 1,000 ML IV ONE (22:24)
[2020-08-09 22:25] LABS: Glucose,Whole Blood 138 mg/dL (75-99)
--- NOTE | 2020-08-09 22:25 | ED ---
General Adult HPI - General Chief complaint: Weakness Stated complaint: Weakness Time Seen by Provider: 08/09/20 21:31 Source: patient, family, RN notes reviewed Mode of arrival: wheelchair Limitations: no limitations - History of Present Illness Initial comments: This a 29-year-old male presents emergency Department with significant other chief complaint of generalized weakness. Patient states that he just feels very weak, tingly all over. Patient states that he worked earlier this morning states that he then had to go to court in which his mother was sentenced to incarceration. Patient states he then proceeded to go helped somebody move. States another room states that he got home was very tired, states he was just exhausted. He does have increased anxiety, and which significantly states he's been under a large amount of stress, history of bipolar disorder on no medications. Denies any illicit drug use no alcohol abuse. Cannot describe any physical complaints other than he just feels generalized weak and tingly. - Related Data Home Medications Medication Instructions Recorded Confirmed ARIPiprazole [Abilify] 5 mg PO DAILY 11/09/16 11/09/16 Baclofen (Unknown Dose) 1 tab PO DIRECTED 11/09/16 11/09/16 Melatonin 3 mg PO HS 11/09/16 11/09/16 OXcarbazepine [Trileptal] 300 mg PO BID 11/09/16 11/09/16 PARoxetine [Paxil] 20 mg PO DAILY 11/09/16 11/09/16 Previous Rx's Medication Instructions Recorded Ciprofloxacin HCl [Cipro] 500 mg PO Q12HR #14 tablet 11/10/16 Allergies Allergy/AdvReac Type Severity Reaction Status Date / Time quetiapine fumarate Allergy Swelling Verified 06/28/18 12:47 [From Seroquel] sertraline HCl [From Zoloft] Allergy Swelling Verified 06/28/18 12:47 Review of Systems ROS Statement: Those systems with pertinent positive or pertinent negative responses have been documented in the HPI. ROS Other: All systems not noted in ROS Statement are negative. Past Medical History Past Medical History: No Reported History Additional Past Medical History / Comment(s): back pain, migraines, kidney stones History of Any Multi-Drug Resistant Organisms: None Reported Past Surgical History: Adenoidectomy, Hernia Repair Additional Past Surgical History / Comment(s): kidney stone retrieval Past Psychological History: Anxiety, Depression Smoking Status: Never smoker Past Alcohol Use History: Occasional Past Drug Use History: None Reported General Exam Limitations: no limitations General appearance: alert, in no apparent distress Head exam: Present: atraumatic, normocephalic, normal inspection Eye exam: Present: normal appearance, PERRL, EOMI. Absent: scleral icterus, conjunctival injection, periorbital swelling ENT exam: Present: normal exam, normal oropharynx, mucous membranes moist, TM's normal bilaterally Neck exam: Present: normal inspection, full ROM. Absent: tenderness, meningismus, lymphadenopathy Respiratory exam: Present: normal lung sounds bilaterally. Absent: respiratory distress, wheezes, rales, rhonchi, stridor Cardiovascular Exam: Present: regular rate, normal rhythm, normal heart sounds. Absent: systolic murmur, diastolic murmur, rubs, gallop, clicks GI/Abdominal exam: Present: soft, normal bowel sounds. Absent: distended, tenderness, guarding, rebound, rigid Neurological exam: Present: alert, oriented X3, CN II-XII intact, reflexes normal. Absent: motor sensory deficit Skin exam: Present: warm, dry, intact, normal color. Absent: rash Course Vital Signs 08/09/20 21:19 Temperature 97.5 F L Pulse Rate 82 Respiratory 16 Rate Blood Pressure 132/83 O2 Sat by Pulse 98 Oximetry - Reevaluation(s) Reevaluation #1: 08/09/20 22:57 Patient reevaluated states he feels greatly improved. Updated on results. EKG Findings - EKG Comments: EKG Findings:: EKG 421:25 normal sinus rhythm rate of 74 CO 140 QRS 94 QT/QTC 374/450 Medical Decision Making - Medical Decision Making 29-year-old gentleman generalized weakness. Patient found to be hypoglycemic given half amp of dextrose and remarkably improved, given IV fluids CK is mildly elevated. Patient did have hyperglycemic event, generalized weakness, stress reaction. Patient will be discharged stable condition return parameters were discussed. - Lab Data Result diagrams: 08/09/20 21:31 08/09/20 21:31 Lab Results 08/09/20 08/09/20 08/09/20 Range/Units 21:30 21:31 21:31 WBC 7.4 (3.8-10.6) k/uL RBC 5.04 (4.30-5.90) m/uL Hgb 15.3 (13.0-17.5) gm/dL Hct 43.6 (39.0-53.0) % MCV 86.5 (80.0-100.0) fL MCH 30.4 (25.0-35.0) pg MCHC 35.1 (31.0-37.0) g/dL RDW 12.7 (11.5-15.5) % Plt Count 221 (150-450) k/uL MPV 7.6 Neutrophils % 62 % Lymphocytes % 26 % Monocytes % 6 % Eosinophils % 2 % Basophils % 1 % Neutrophils # 4.6 (1.3-7.7) k/uL Lymphocytes # 1.9 (1.0-4.8) k/uL Monocytes # 0.4 (0-1.0) k/uL Eosinophils # 0.2 (0-0.7) k/uL Basophils # 0.1 (0-0.2) k/uL PT 10.2 (9.0-12.0) sec INR 0.9 (<1.2) APTT 24.2 (22.0-30.0) sec Sodium (137-145) mmol/L Potassium (3.5-5.1) mmol/L Chloride (98-107) mmol/L Carbon Dioxide (22-30) mmol/L Anion Gap mmol/L BUN (9-20) mg/dL Creatinine (0.66-1.25) mg/dL Est GFR (CKD-EPI)AfAm (>60 ml/min/1.73 sqM) Est GFR (CKD-EPI)NonAf (>60 ml/min/1.73 sqM) Glucose (74-99) mg/dL POC Glucose (mg/dL) 71 L (75-99) mg/dL POC Glu Relief Captain ID Yoselin, Goldie Plasma Lactic Acid Yordy (0.7-2.0) mmol/L Calcium (8.4-10.2) mg/dL Magnesium (1.6-2.3) mg/dL Total Bilirubin (0.2-1.3) mg/dL AST (17-59) U/L ALT (4-49) U/L Alkaline Phosphatase (38-126) U/L Creatine Kinase (55-170) U/L Troponin I (0.000-0.034) ng/mL Total Protein (6.3-8.2) g/dL Albumin (3.5-5.0) g/dL Urine Color Urine Appearance (Clear) Urine pH (5.0-8.0) Ur Specific Neola (1.001-1.035) Urine Protein (Negative) Urine Glucose (UA) (Negative) Urine Ketones (Negative) Urine Blood (Negative) Urine Nitrite (Negative) Urine Bilirubin (Negative) Urine Urobilinogen (<2.0) mg/dL Ur Leukocyte Esterase (Negative) Urine RBC (0-5) /hpf Urine WBC (0-5) /hpf Amorphous Sediment (None) /hpf Hyaline Casts (0-2) /lpf Urine Mucus (None) /hpf Urine Opiates Screen (NotDetected) Ur Oxycodone Screen (NotDetected) Urine Methadone Screen (NotDetected) Ur Propoxyphene Screen (NotDetected) Ur Barbiturates Screen (NotDetected) U Tricyclic Antidepress (NotDetected) Ur Phencyclidine Scrn (NotDetected) Ur Amphetamines Screen (NotDetected) U Methamphetamines Scrn (NotDetected) U Benzodiazepines Scrn (NotDetected) Urine Cocaine Screen (NotDetected) U Marijuana (THC) Screen (NotDetected) Serum Alcohol mg/dL 08/09/20 08/09/20 08/09/20 Range/Units 21:31 21:31 21:31 WBC (3.8-10.6) k/uL RBC (4.30-5.90) m/uL Hgb (13.0-17.5) gm/dL Hct (39.0-53.0) % MCV (80.0-100.0) fL MCH (25.0-35.0) pg MCHC (31.0-37.0) g/dL RDW (11.5-15.5) % Plt Count (150-450) k/uL MPV Neutrophils % % Lymphocytes % % Monocytes % % Eosinophils % % Basophils % % Neutrophils # (1.3-7.7) k/uL Lymphocytes # (1.0-4.8) k/uL Monocytes # (0-1.0) k/uL Eosinophils # (0-0.7) k/uL Basophils # (0-0.2) k/uL PT (9.0-12.0) sec INR (<1.2) APTT (22.0-30.0) sec Sodium 139 (137-145) mmol/L Potassium 3.6 (3.5-5.1) mmol/L Chloride 102 (98-107) mmol/L Carbon Dioxide 25 (22-30) mmol/L Anion Gap 12 mmol/L BUN 7 L (9-20) mg/dL Creatinine 0.69 (0.66-1.25) mg/dL Est GFR (CKD-EPI)AfAm >90 (>60 ml/min/1.73 sqM) Est GFR (CKD-EPI)NonAf >90 (>60 ml/min/1.73 sqM) Glucose 70 L (74-99) mg/dL POC Glucose (mg/dL) (75-99) mg/dL POC Glu Relief Captain ID Plasma Lactic Acid Yordy 1.3 (0.7-2.0) mmol/L Calcium 10.0 (8.4-10.2) mg/dL Magnesium 2.0 (1.6-2.3) mg/dL Total Bilirubin 0.8 (0.2-1.3) mg/dL AST 58 (17-59) U/L ALT 38 (4-49) U/L Alkaline Phosphatase 77 (38-126) U/L Creatine Kinase 228 H (55-170) U/L Troponin I (0.000-0.034) ng/mL Total Protein 8.7 H (6.3-8.2) g/dL Albumin 5.2 H (3.5-5.0) g/dL Urine Color Yellow Urine Appearance Clear (Clear) Urine pH 6.0 (5.0-8.0) Ur Specific Neola 1.024 (1.001-1.035) Urine Protein 1+ H (Negative) Urine Glucose (UA) 1+ H (Negative) Urine Ketones Negative (Negative) Urine Blood Negative (Negative) Urine Nitrite Negative (Negative) Urine Bilirubin Negative (Negative) Urine Urobilinogen <2.0 (<2.0) mg/dL Ur Leukocyte Esterase Negative (Negative) Urine RBC 1 (0-5) /hpf Urine WBC 1 (0-5) /hpf Amorphous Sediment Rare H (None) /hpf Hyaline Casts 5 H (0-2) /lpf Urine Mucus Few H (None) /hpf Urine Opiates Screen Not Detected (NotDetected) Ur Oxycodone Screen Not Detected (NotDetected) Urine Methadone Screen Not Detected (NotDetected) Ur Propoxyphene Screen Not Detected (NotDetected) Ur Barbiturates Screen Not Detected (NotDetected) U Tricyclic Antidepress Not Detected (NotDetected) Ur Phencyclidine Scrn Not Detected (NotDetected) Ur Amphetamines Screen Not Detected (NotDetected) U Methamphetamines Scrn Not Detected (NotDetected) U Benzodiazepines Scrn Not Detected (NotDetected) Urine Cocaine Screen Not Detected (NotDetected) U Marijuana (THC) Screen Not Detected (NotDetected) Serum Alcohol <10 mg/dL 08/09/20 08/09/20 Range/Units 21:31 22:24 WBC (3.8-10.6) k/uL RBC (4.30-5.90) m/uL Hgb (13.0-17.5) gm/dL Hct (39.0-53.0) % MCV (80.0-100.0) fL MCH (25.0-35.0) pg MCHC (31.0-37.0) g/dL RDW (11.5-15.5) % Plt Count (150-450) k/uL MPV Neutrophils % % Lymphocytes % % Monocytes % % Eosinophils % % Basophils % % Neutrophils # (1.3-7.7) k/uL Lymphocytes # (1.0-4.8) k/uL Monocytes # (0-1.0) k/uL Eosinophils # (0-0.7) k/uL Basophils # (0-0.2) k/uL PT (9.0-12.0) sec INR (<1.2) APTT (22.0-30.0) sec Sodium (137-145) mmol/L Potassium (3.5-5.1) mmol/L Chloride (98-107) mmol/L Carbon Dioxide (22-30) mmol/L Anion Gap mmol/L BUN (9-20) mg/dL Creatinine (0.66-1.25) mg/dL Est GFR (CKD-EPI)AfAm (>60 ml/min/1.73 sqM) Est GFR (CKD-EPI)NonAf (>60 ml/min/1.73 sqM) Glucose (74-99) mg/dL POC Glucose (mg/dL) 138 H (75-99) mg/dL POC Glu Relief Captain ID Goldie Wyatt Plasma Lactic Acid Yordy (0.7-2.0) mmol/L Calcium (8.4-10.2) mg/dL Magnesium (1.6-2.3) mg/dL Total Bilirubin (0.2-1.3) mg/dL AST (17-59) U/L ALT (4-49) U/L Alkaline Phosphatase (38-126) U/L Creatine Kinase (55-170) U/L Troponin I <0.012 (0.000-0.034) ng/mL Total Protein (6.3-8.2) g/dL Albumin (3.5-5.0) g/dL Urine Color Urine Appearance (Clear) Urine pH (5.0-8.0) Ur Specific Neola (1.001-1.035) Urine Protein (Negative) Urine Glucose (UA) (Negative) Urine Ketones (Negative) Urine Blood (Negative) Urine Nitrite (Negative) Urine Bilirubin (Negative) Urine Urobilinogen (<2.0) mg/dL Ur Leukocyte Esterase (Negative) Urine RBC (0-5) /hpf Urine WBC (0-5) /hpf Amorphous Sediment (None) /hpf Hyaline Casts (0-2) /lpf Urine Mucus (None) /hpf Urine Opiates Screen (NotDetected) Ur Oxycodone Screen (NotDetected) Urine Methadone Screen (NotDetected) Ur Propoxyphene Screen (NotDetected) Ur Barbiturates Screen (NotDetected) U Tricyclic Antidepress (NotDetected) Ur Phencyclidine Scrn (NotDetected) Ur Amphetamines Screen (NotDetected) U Methamphetamines Scrn (NotDetected) U Benzodiazepines Scrn (NotDetected) Urine Cocaine Screen (NotDetected) U Marijuana (THC) Screen (NotDetected) Serum Alcohol mg/dL Disposition Clinical Impression: Stress reaction, Hypoglycemia, Generalized weakness Disposition: HOME SELF-CARE Condition: Stable Instructions (If sedation given, give patient instructions): Non-diabetic Hypoglycemia (ED) Additional Instructions: Please return to the Emergency Department if symptoms worsen or any other concerns. Is patient prescribed a controlled substance at d/c from ED?: No Referrals: Emma Rosario MD [Primary Care Provider] - 1-2 days Time of Disposition: 22:58
[2020-08-09 22:30] LABS: Amorphous Sediment,Urine Rare /hpf; Appearance,Urine Clear (Clear); Bilirubin,Urine Negative (Negative); Blood,Urine Negative (Negative); Color,Urine Yellow; Glucose,Urine (UA) 1+ (Negative); Hyaline Casts,Urine 5 /lpf (0-2); Ketones,Urine Negative (Negative); Leukocyte Esterase,Urine Negative (Negative); Mucus,Urine Few /hpf; Nitrite,Urine Negative (Negative); Protein,Urine 1+ (Negative); RBC,Urine 1 /hpf (0-5); Specific Gravity,Urine 1.024 (1.001-1.035); Urobilinogen,Urine <2.0 mg/dL (<2.0); WBC,Urine 1 /hpf (0-5)
[2020-08-09 22:39] LABS: Amphetamine Screen,Urine Not Detected (NotDetected); Barbiturate Screen,Urine Not Detected (NotDetected); Benzodiazepines Screen,Urine Not Detected (NotDetected); Cocaine Screen,Urine Not Detected (NotDetected); Methadone Screen, Urine Not Detected (NotDetected); Opiate Screen,Urine Not Detected (NotDetected); Oxycodone Screen, Urine Not Detected (NotDetected); Phencyclidine Screen,Urine Not Detected (NotDetected); Tricyclic Antidepressant,Urine Not Detected (NotDetected); Urn Cannabinoid Scrn Not Detected (NotDetected)
[2020-08-09 23:11] VITALS: BP 131/77; PULSE 75
== END 2020-08-09 23:11 | disposition home or self-care (01) ==
LOC: EC 21:18
DX: F43.9 Reaction to severe stress, unspecified (principal); E16.2 Hypoglycemia, unspecified; F31.9 Bipolar disorder, unspecified; F41.9 Anxiety disorder, unspecified; Z79.899 Other long term (current) drug therapy
CPT/HCPCS: 36415; 80053; 80306; 80320; 81001; 82550; 83605; 83735; 84484; 85025; 85610; 85730; 93005; 96360; 99285

== ENCOUNTER → 2021-10-06 | Outpatient (CLI) | payer BC ==
--- NOTE | 2021-10-20 11:49 | HM ---
Holter monitor shows sinus rhythm with heart rates ranging from 52-141 beats a minute 1179 beats a minute No arrhythmias Very occasional PVCs During periods of being emotionally upset, no arrhythmias noted MTDD
== END | disposition home or self-care (01) ==
LOC: RADECHMAIN 07:08
PROVIDERS: ATTEND Family Medicine
DX: R55 Syncope and collapse (principal)
CPT/HCPCS: 93225; 93226

== ENCOUNTER → 2024-06-02 | Outpatient (CLI) | payer BC ==
[2024-06-02 14:50] LABS: HCT 47.7 % (39.6-50.0); HGB 15.9 g/dL (13.0-17.0); MCH 29.4 pg (27.0-32.0); MCHC 33.3 g/dL (32.0-37.0); MCV 88.3 FL (80.0-97.0); Mean Platelet Volume 10.4 FL (9.5-12.2); Platelet Count 209 X 10*3/uL (140-440); RDW 12.9 % (11.5-14.5); WBC 6.89 X 10*3/uL (4.50-10.00)
[2024-06-02 14:51] LABS: Basophils # (A) 0.04 X 10*3/uL (0.00-0.10); Basophils % (A) 0.6 %; Eosinophils # (A) 0.15 X 10*3/uL (0.04-0.35); Eosinophils % (A) 2.2 %; Lymphocytes # (A) 1.36 X 10*3/uL (0.90-5.00); Lymphocytes % (A) 19.7 %; Monocytes # (A) 0.54 X 10*3/uL (0.20-1.00); Monocytes % (A) 7.8 %; NRBC Per 100 WBC 0 X 10*3/uL (0.00-0.01); Neutrophils # (A) 4.77 X 10*3/uL (1.80-7.70); Neutrophils % (A) 69.3 %
[2024-06-02 15:26] LABS: ALT 59 U/L (10-49); AST 50 U/L (14-35); Albumin 4.8 g/dL (3.8-4.9); Albumin/Globulin Ratio 1.41 Ratio (1.60-3.17); Alkaline Phosphatase 93 U/L (41-126); Blood Urea Nitrogen 10.5 mg/dL (9.0-27.0); Calcium 9.7 mg/dL (8.7-10.3); Carbon Dioxide 22.7 mmol/L (21.6-31.8); Chloride 103 mmol/L (96-109); Chol/HDL Ratio 7.31 Ratio; Globulin 3.4 g/dL (1.6-3.3); Glucose 96 mg/dL (70-110); LDL Cholesterol,Calculated 192.2 mg/dL (0.0-131.0); Potassium 4.7 mmol/L (3.5-5.5); Sodium 138 mmol/L (135-145); Total Bilirubin 0.4 mg/dL (0.3-1.2); Total Protein 8.2 g/dL (6.2-8.2)
[2024-06-02 15:27] LABS: T4, Free (Free Thyroxine) 1.09 ng/dL (0.80-1.80)
== END | disposition home or self-care (01) ==
LOC: LABWHC1 10:16
DX: Z00.01 Encounter for general adult medical examination with abnormal findings (principal); R53.83 Other fatigue
CPT/HCPCS: 36415; 80053; 80061; 82607; 82746; 83036; 84403; 84439; 84443; 85025